=== PATIENT | female | born 1975 | race Caucasian/White ===

== ENCOUNTER 2018-01-26 17:59 | Emergency (ER) | payer SELFPAY ==
[~2018-01-26] VITALS: Ht 172.7 cm; Wt 59.8 kg
[~2018-01-26 17:59] MED LIST: BACTRIM DS1 TAB PO; KEFLEX500 M1 PO; KEFLEX500 MG PO; LORTAB 1010 MG PO; NO HOME MEDS; TYLENOL # 31 TA1 PO; ULTRAM50 M1 PO; ULTRAM50 MG OR; ULTRAM50 MG PO; [UNRECOGNIZED DRUG - OTHER] PO
[2018-01-26 18:57] LABS: INFLUENZA A NONE DETECTED (NONE DETECT); INFLUENZA B POSITIVE (NONE DETECT)
[2018-01-26 18:59] VITALS: BP 122/80
[2018-01-26] MEDS ORDERED: ROBITUSSIN AC10 ML PO (18:59)
[2018-01-26] MEDS ORDERED: TAM75CAP PO (18:59)
== END 2018-01-26 19:06 | disposition home or self-care (01) | DRG 195 ==
LOC: ED 17:59
PROVIDERS: Emergency Medicine
DX: J10.1 Influenza due to other identified influenza virus with other respiratory manifestations (principal); F17.290 Nicotine dependence, other tobacco product, uncomplicated; R05 Cough; R50.9 Fever, unspecified